=== PATIENT | male | born 1985 | race Caucasian/White ===

== ENCOUNTER 2017-01-11 17:04 | Outpatient (CLI) | payer BC, OTHER | END 2017-01-11 17:05 | disposition home or self-care (01) | DX: R10.9 Unspecified abdominal pain (principal) ==

== ENCOUNTER 2017-07-21 16:30 | Outpatient (CLI) | payer OTHER ==
--- NOTE | 2017-07-21 22:14 | MRI Report ---
EXAM: MRI LUMBAR SPINE WITHOUT CONTRAST EXAM DATE: 07/21/2017 05:06 PM. CLINICAL HISTORY: Herniated lumbar disk w/radiculopathy. COMPARISON: MRI of the lumbar spine without contrast 10/04/2014. TECHNIQUE: Multiplanar, multisequence T1-weighted and fluid-sensitive sequences of the lumbar spine f rom T12 to S1 without contrast. Other: None. FINDINGS: There is straightening of the normal lumbar lordosis. There is mild dessication of the disk spaces at L3-L4 and L4-L5. There is a mild decrease in the height of the disk at L4-L5. There is a mixture Mod ic type I and type II endplate degenerative change within the L4-L5 endplates. There are small Schmorl's nodes within the endplates at T12-L1 through L5-S1. The conus terminates at T12-L1 and is normal. There is no significant atrophy of the paraspinal musculature or the psoas musculature. The abdominal aorta is of normal caliber. L2-L3: There is no significant disk bulge, central or foraminal stenosis. The facets are normal. L3-L4: There is a small disk osteophyte complex with annular tear abutting the sac producing a mild c entral canal stenosis. There has been slight retraction of the disk bulge since the last exam. There is mild to moderate neural foraminal narrowing bilaterally. The facets are normal. L4-L5: There is a small disk osteophyte complex abutting the sac with superimposed central extrusion of the disk producing a mild central canal stenosis. There has been mild retraction of the extrusion. The facets are normal. There is mild to moderate neural foraminal narrowing bilaterally. L5-S1: There is no significant disk bulge, central or foraminal stenosis. The facets are normal. IMPRESSION: 1. There has been slight retraction of the disk bulge at L3-L4. There is now a mild central canal yecenia nosis. 2. There is a small disk osteophyte complex at L4-L5 with superimposed central extrusion of the disk producing a mild central canal stenosis. There has been mild retraction of the extrusion. Comment: The following findings are so common in adults without low back pain that while we report th eir presence, they must be interpreted with caution and in the context of the clinical situation. (Re mioses Dumont et al, Spine 2001) Prevalence of findings in patients without low back pain: Disk degeneration (any evidence): 92% Disk desiccation/T2 signal loss: 83% Disk height loss: 56% Disk bulge: 64% Disk protrusion: 32% Annular tear/high intensity zone: 38% [facility] Referring Provider Line: [phone] SITE ID: [id number]
== END 2017-07-21 16:31 | disposition home or self-care (01) ==
LOC: DI 16:30
PROVIDERS: ATTEND Physician Assistant Medical
DX: M51.26 Other intervertebral disc displacement, lumbar region (principal); M51.36 Other intervertebral disc degeneration, lumbar region; M51.45 Schmorl's nodes, thoracolumbar region; M51.47 Schmorl's nodes, lumbosacral region
CPT/HCPCS: 72148

== ENCOUNTER 2020-05-23 08:28 | Outpatient (CLI) | payer OTHER ==
--- NOTE | 2020-05-23 09:14 | XRAY Report ---
PROCEDURE: Foot 2 View LT INDICATIONS: L HEEL PAIN TECHNIQUE: 2 views of the foot were acquired. COMPARISON: None FINDINGS: Bones: Small plantar calcaneal enthesophyte. Mildly increased thickness of hindfoot plantar soft tis sues subjacent to the calcaneus. No fractures or dislocations. No suspicious bony lesions. Soft tissues: No tibiotalar joint effusion. Achilles tendon appears normal. IMPRESSION: Small plantar calcaneal enthesophyte with mildly increased thickness of the hindfoot plantar soft tis sues subjacent to the calcaneus. These findings would be consistent with plantar fasciitis in the [facility] clinical setting. Reviewed by: Gómez Morrow MD on 05/23/2020 9:12 AM PDT Approved by: Gómez Morrow MD on 05/23/2020 9:12 AM PDT Station ID: [id number]
== END 2020-05-23 08:29 | disposition home or self-care (01) ==
LOC: DI 08:28
PROVIDERS: ATTEND Family Medicine
DX: M79.672 Pain in left foot (principal)